=== PATIENT | male | born 1950 | race Caucasian/White ===

== ENCOUNTER → 2023-07-12 10:03 | Outpatient (REF) | payer MEDICARE, OTHER, SELFPAY ==
[2023-07-12 11:17] LABS: Glucose 131 mg/dl (70-99)
[2023-07-12 13:55] LABS: Glycohemoglobin (HgbA1c) 6.9 % (4.0-5.6)
== END ==
LOC: REG 10:03
DX: R73.03 Prediabetes (principal)
CPT/HCPCS: 36415; 82947; 83036

== ENCOUNTER → 2023-08-22 08:32 | Outpatient (REF) | payer MEDICARE, OTHER, SELFPAY | LOC: PAVMRI 08:32 | PROVIDERS: ATTENDING PHYSICIAN Neurological Surgery; FAMILY PHYSICIAN Family Medicine | DX: M54.16 Radiculopathy, lumbar region (principal) | CPT/HCPCS: 72158; A9575 ==

== ENCOUNTER → 2024-06-16 06:40 | Outpatient (REF) | payer MEDICARE, OTHER, SELFPAY | LOC: MRI 06:40 | PROVIDERS: ATTENDING PHYSICIAN Neurological Surgery; FAMILY PHYSICIAN Family Medicine | DX: M48.02 Spinal stenosis, cervical region (principal) | CPT/HCPCS: 72141 ==

== ENCOUNTER → 2024-08-20 15:43 | Outpatient (REF) | payer MEDICARE, OTHER, SELFPAY | LOC: MRI 15:43 | PROVIDERS: ATTENDING PHYSICIAN Family Medicine; FAMILY PHYSICIAN Family Medicine | DX: G89.29 Other chronic pain (principal); M54.41 Lumbago with sciatica, right side; M54.42 Lumbago with sciatica, left side; M48.00 Spinal stenosis, site unspecified | CPT/HCPCS: 72114; 72148 ==